=== PATIENT | female | born 1990 | race Caucasian/White ===

== ENCOUNTER 2017-11-22 23:05 | Emergency (ER) | payer MEDICAID ==
[~2017-11-22] VITALS: Ht 167.6 cm; Wt 65.8 kg
[2017-11-22 23:14] VITALS: BP_SYST 127
[2017-11-22] MEDS ORDERED: ALBUTEROL SULFATE 0.083% 2.5 MG/3 ML VIAL.NEB IH ONE (23:15)
[2017-11-22] MEDS ORDERED: methylPREDNISolone SOD SUCC/PF 62.5 MG/ML VIAL IVP ONE (23:15)
[2017-11-22] MEDS ORDERED: MAGNESIUM SULFATE 50 ML IV ONE (23:15)
[2017-11-22] MEDS ORDERED: IPRATROPIUM BROM 0.5 MG/2.5 ML VIAL.NEB (ATROVENT) IH ONE (23:15)
--- NOTE | 2017-11-22 23:45 | NUR ---
Patient to ER bed 8 to await MD evaluation.
--- NOTE | 2017-11-22 23:50 | NUR ---
Patient to ER via triage with c/o increasing cough and exacerbation of her Asthma over the last few days. Patient reports no relief at home from either nebulizer or MDI. Patient is awake, alert and oriented in no acute distress. Patient denies CP/Pressure at present. Awaiting evaluation by ER MD, will continue to observe and assess. IV started on first attempt using aseptic technique with #20 to right wrist, patient tolerated well. Blood drawn and taken to lab, IV flushed with 10 ml of NS. No redness or swelling noted at site.
--- NOTE | 2017-11-22 23:55 | NUR ---
Dr De at bedside to evaluate patient.
--- NOTE | 2017-11-23 00:30 | NUR ---
Patient resting quietly in no acute distress. IV magnesium infusing without difficulty via pump, no redness or swelling noted at site.
[2017-11-23] MEDS ORDERED: IPRATROPIUM BROM 0.5 MG/2.5 ML VIAL.NEB (ATROVENT) IH ONE (00:45)
[2017-11-23] MEDS ORDERED: ALBUTEROL SULFATE 0.083% 2.5 MG/3 ML VIAL.NEB IH ONE (00:45)
--- NOTE | 2017-11-23 01:30 | NUR ---
Patient resting quietly in no acute distress. IV magnesium continues to infuse without difficulty via pump, no redness or swelling noted at site. Will continue to observe and assess.
[2017-11-23 01:45] VITALS: BP_SYST 124
--- NOTE | 2017-11-23 01:45 | NUR ---
Patient given written and verbal discharge instructions and verbalizes understanding. ER MD discussed with patient the results and treatment provided. Patient in stable condition. ID arm band removed. IV catheter removed intact and dressing applied, no active bleeding. Rx of albuterol, prednisone, and zithromax given. Patient educated on pain management and to follow up with PMD. Pain Scale 0/10. Opportunity for questions provided and answered.
== END 2017-11-23 01:45 | disposition home or self-care (01) ==
LOC: SED 23:05
DX: J45.901 Unspecified asthma with (acute) exacerbation (principal); I10 Essential (primary) hypertension; F31.9 Bipolar disorder, unspecified
CPT/HCPCS: 94640 ×2; 96365; 96366; 96375; 99285; J2930; J3475

== ENCOUNTER 2021-11-15 03:20 | Emergency (ER) | payer MEDICAID ==
[~2021-11-15] VITALS: Ht 167.6 cm; Wt 65.8 kg
[2021-11-15 03:26] VITALS: BP_SYST 110
--- NOTE | 2021-11-15 03:31 | NUR ---
Patient triaged and placed in waiting room. VSS and patient appears in no acute distress at this time. Accompanied by FAMILY, awaiting available bed, and MD notified of need for MSE.
--- NOTE | 2021-11-15 03:52 | NUR ---
Patient to ER bed 7 to gown for evaluation. Side rails up. Report given to LENNY NEGRON.
[2021-11-15] MEDS ORDERED: ACETAMINOPHEN 500 MG TABLET PO ONE (04:00)
[2021-11-15] MEDS ORDERED: METOCLOPRAMIDE HCL 10 MG/2 ML VIAL IVP ONE (04:00)
[2021-11-15] MEDS ORDERED: DIPHENHYDRAMINE INJ 50 MG/ML VIAL IVP ONE (04:00)
[2021-11-15] MEDS ORDERED: KETOROLAC TROMETHAMINE 15 MG VIAL IVP ONE (04:00)
--- NOTE | 2021-11-15 04:14 | NUR ---
Medicated per MD orders, medications administered by Reed Daigle Will cont to monitor and observe for any adverse reaction.
[2021-11-15 04:21] LABS: BASOPHILS # (AUTO) 0.1 K/uL (0.0-0.2); BASOPHILS % (AUTO) 0.8 % (0.0-2.0); EOSINOPHILS # (AUTO) 0.6 K/uL (0.0-0.4); EOSINOPHILS % (AUTO) 6.4 % (0.0-4.0); HEMATOCRIT 38.4 % (36-48); HEMOGLOBIN 12.9 g/dL (12.0-16.0); LYMPHOCYTES # (AUTO) 2.9 K/uL (1.0-5.5); MEAN CORPUSCULAR HEMOGLOBIN 28 pg (27-31); MEAN CORPUSCULAR HGB CONC 34 % (32-36); MEAN CORPUSCULAR VOLUME 84 fL (79.0-98.0); MONOCYTES # (AUTO) 0.6 K/uL (0.0-1.0); MONOCYTES % (AUTO) 5.6 % (1.7-9.3); NEUTROPHILS # (AUTO) 5.8 K/uL (1.8-7.7); NEUTROPHILS % (AUTO) 58.2 % (40.0-70.0); PLATELET COUNT (AUTO) 369 K/uL (130-430); RED CELL DISTRIBUTION WIDTH 13.5 % (9.0-15.0); WHITE BLOOD COUNT (AUTO) 9.9 K/uL (4.8-10.8)
[2021-11-15 04:31] LABS: ALBUMIN 3.8 g/dL (3.4-4.8); CALCIUM 8.4 mg/dL (8.4-11.0); CREATININE 0.61 mg/dL (0.55-1.30); POTASSIUM 3.8 mmol/L (3.5-5.1); TOTAL BILIRUBIN 0.6 mg/dL (0.0-1.0)
--- NOTE | 2021-11-15 05:02 | NUR ---
Patient resting quietly. No acute distress noted. Vital signs within normal range. no adverse reaction noted to medications.
[2021-11-15] MEDS ORDERED: ACET-2634 PO (05:13)
--- NOTE | 2021-11-15 06:19 | NUR ---
Patient given written and verbal discharge instructions and verbalizes understanding. ER MD discussed with patient the results and treatment provided. Patient in stable condition. ID arm band removed. IV catheter removed intact and dressing applied, no active bleeding. Rx of acetaminophen given. Patient educated on pain management and to follow up with PMD. Pain Scale 0. Opportunity for questions provided and answered. Medication side effect fact sheet provided.
[2021-11-15 06:20] VITALS: BP_SYST 11
== END 2021-11-15 06:21 | disposition home or self-care (01) ==
LOC: SED 03:20
DX: G43.909 Migraine, unspecified, not intractable, without status migrainosus (principal); J45.909 Unspecified asthma, uncomplicated
CPT/HCPCS: 36415; 80053; 85025; 96374; 96375; 99284; J1200; J1885; J2765

== ENCOUNTER 2022-05-09 00:44 | Emergency (ER) | payer MEDICAID ==
[~2022-05-09] VITALS: Ht 167.6 cm; Wt 59.0 kg
[~2022-05-09 00:44] MED LIST: ACET-2634 PO; IBUP-1969 PO; TRAM50TA2 PO
[2022-05-09 00:49] VITALS: BP_SYST 112
[2022-05-09] MEDS ORDERED: BACI15OI13 TP (01:09)
[2022-05-09] MEDS ORDERED: AUG875 PO (01:09)
[2022-05-09] MEDS ORDERED: IBUP-1969 PO (01:09)
[2022-05-09] MEDS ORDERED: AMOXICILLIN/CLAVULANATE POTASSIUM 875 MG TABLET PO ONE (01:15)
[2022-05-09] MEDS ORDERED: KETOROLAC TROMETHAMINE 30 MG VIAL IM ONE (01:15)
[2022-05-09] MEDS ORDERED: BACITRACIN 1 GM OINT TP ONE (01:30)
[2022-05-09 01:55] VITALS: BP_SYST 112
== END 2022-05-09 02:08 | disposition home or self-care (01) ==
LOC: SED 00:44
DX: S61.431A Puncture wound without foreign body of right hand, initial encounter (principal); J45.909 Unspecified asthma, uncomplicated; Z79.899 Other long term (current) drug therapy; W54.0XXA Bitten by dog, initial encounter; Y93.89 Activity, other specified; Y92.89 Other specified places as the place of occurrence of the external cause; Y99.8 Other external cause status
CPT/HCPCS: 99283; 73130; 96372; J1885

== ENCOUNTER 2022-12-08 00:53 | Emergency (ER) | payer MEDICAID ==
[~2022-12-08] VITALS: Ht 167.6 cm; Wt 65.8 kg
[~2022-12-08 00:53] MED LIST changes: +AUG875 PO; +BACI15OI13 TP
[2022-12-08 01:04] VITALS: BP_SYST 135
[2022-12-08] MEDS ORDERED: DOCU-144 PO (01:48)
[2022-12-08 02:00] VITALS: BP_SYST 124
== END 2022-12-08 02:00 | disposition home or self-care (01) ==
LOC: SED 00:53
DX: K60.2 Anal fissure, unspecified (principal); K92.1 Melena; Z79.899 Other long term (current) drug therapy
CPT/HCPCS: 99282

== ENCOUNTER 2023-03-03 02:02 | Emergency (ER) | payer MEDICAID ==
[~2023-03-03] VITALS: Ht 167.6 cm; Wt 61.2 kg
[~2023-03-03 02:02] MED LIST changes: +DOCU-144 PO
[2023-03-03 02:05] VITALS: BP_SYST 114
--- NOTE | 2023-03-03 02:05 | NUR ---
Triaged and placed patient back to the waiting room. No acute respiratory distress at this time. VSS. Informed patient to notify ED staff for any changes in condition or worsening of symptoms while waiting to be seen by a provider. Patient verbalized understanding.
--- NOTE | 2023-03-03 02:30 | NUR ---
Patient placed in ER Hallway 1 for evaluation. Bed in lowest position with siderails up. Report given to [place] NEGRON for continuity of care. Instructed to notify ED staff for any changes in condition or worsening of symptoms. Patient verbalized understanding.
--- NOTE | 2023-03-03 02:31 | NUR ---
Dr. Espitia at bedside examining the patient.
[2023-03-03] MEDS ORDERED: KETOROLAC TROMETHAMINE 30 MG VIAL IVP ONE (02:45)
[2023-03-03] MEDS ORDERED: METOCLOPRAMIDE HCL 10 MG/2 ML VIAL IVP ONE (02:45)
[2023-03-03] MEDS ORDERED: NACL 0.9% 1,000 ML IV ONE (02:45)
[2023-03-03 04:07] VITALS: BP_SYST 114
--- NOTE | 2023-03-03 04:07 | NUR ---
Patient given written and verbal discharge instructions and verbalizes understanding. ER DR. STALLINGS discussed with patient the results and treatment provided. Patient in stable condition. ID arm band removed. IV catheter removed intact and dressing applied, no active bleeding. Patient educated on pain management and to follow up with PMD. Pain Scale 0. Opportunity for questions provided and answered. Medication side effect fact sheet provided.
== END 2023-03-03 04:07 | disposition home or self-care (01) ==
LOC: SED 02:02
DX: G43.909 Migraine, unspecified, not intractable, without status migrainosus (principal); R11.0 Nausea; H53.141 Visual discomfort, right eye; J45.909 Unspecified asthma, uncomplicated; F17.200 Nicotine dependence, unspecified, uncomplicated; Z79.899 Other long term (current) drug therapy
CPT/HCPCS: 99284; 96374; 96361; 96375; J1885; J2765; J7030